=== PATIENT | female | born 1940 | race Caucasian/White ===

== ENCOUNTER → 2016-07-30 | Outpatient (CLI) | payer MEDICARE | LOC: KOH-I 13:30 | DX: M54.16 Radiculopathy, lumbar region (principal); R10.9 Unspecified abdominal pain; N20.0 Calculus of kidney; M51.16 Intervertebral disc disorders with radiculopathy, lumbar region; Z98.890 Other specified postprocedural states | CPT/HCPCS: 72148; 74176 ==

== ENCOUNTER 2020-08-15 00:55 | Inpatient (IN) | payer MEDICARE ==
[~2020-08-15] VITALS: Ht 157.5 cm; Wt 85.3 kg
[2020-08-15 01:28] LABS: HEMOGLOBIN 10.5 gm/dl (12.3-15.3); RED BLOOD COUNT 3.47 M/UL (4.00-5.10); WHITE BLOOD COUNT 9.4 K/UL (4.5-11.0)
[2020-08-15] MEDS ORDERED: HYDROCHLOROTHIA25 MG PO (05:36)
[2020-08-15] MEDS ORDERED: COREG 12.5MG12.5 MG PO (05:36)
[2020-08-15] MEDS ORDERED: LASIX20 MG PO (05:37)
[2020-08-15] MEDS ORDERED: LEVOTHYROXINE100 MC2 PO (05:37)
[2020-08-15] MEDS ORDERED: PROTONIX40 MG PO (05:37)
[2020-08-15] MEDS ORDERED: EFFEXOR XR75 MG PO (05:38)
[2020-08-15] MEDS ORDERED: FEOSOL325 MG PO (05:38)
[2020-08-15] MEDS ORDERED: ALTACE CAP 5MG5 MG PO (05:38)
[2020-08-15] MEDS ORDERED: VITAMIN C500 M4 PO (05:39)
[2020-08-15] MEDS ORDERED: MACRODANTIN100 MG PO (05:40)
[2020-08-15] MEDS ORDERED: TRAZODONE HCL100 MG PO (05:41)
[2020-08-15] MEDS ORDERED: ZYRTEC10 MG PO (05:41)
[2020-08-15] MEDS ORDERED: HYDRALAZINE HCL25 MG PO (05:54)
[2020-08-15] MEDS ORDERED: SINEQUAN CAP 2525 MG PO (05:54)
[2020-08-15] MEDS ORDERED: PREDNISONE 5 MG5 MG PO (05:57)
[2020-08-15] MEDS ORDERED: WARFARIN SODIUM6 MG PO (06:00)
[2020-08-16 06:22] LABS: HEMOGLOBIN 9.6 gm/dl (12.3-15.3); RED BLOOD COUNT 3.26 M/UL (4.00-5.10)
[2020-08-16 06:29] LABS: WHITE BLOOD COUNT 6.3 K/UL (4.5-11.0)
[2020-08-17] MEDS ORDERED: BACTRIM DS TAB1 EACH PO (10:21)
[2020-08-17] MEDS ORDERED: PREDNISONE10 MG PO (13:09)
== END 2020-08-17 14:43 | disposition home or self-care (01) | DRG 189 ==
LOC: ER1 00:55 → MED SURG 4 02:00 → CDU 02:00 → MED SURG 4 05:15
PROVIDERS: Internal Medicine; ADMIT Internal Medicine
PROC: B24BZZ4 Ultrasonography of Heart with Aorta, Transesophageal (ICD-10-PCS; principal; 2020-08-15)
DX: J96.21 Acute and chronic respiratory failure with hypoxia (principal); E66.2 Morbid (severe) obesity with alveolar hypoventilation; Z68.41 Body mass index [BMI] 40.0-44.9, adult; F11.20 Opioid dependence, uncomplicated; I50.42 Chronic combined systolic (congestive) and diastolic (congestive) heart failure; N39.0 Urinary tract infection, site not specified; Z66 Do not resuscitate; I25.10 Atherosclerotic heart disease of native coronary artery without angina pectoris; G89.29 Other chronic pain; Z20.822 Contact with and (suspected) exposure to COVID-19; I11.0 Hypertensive heart disease with heart failure; I25.5 Ischemic cardiomyopathy; I08.1 Rheumatic disorders of both mitral and tricuspid valves; M47.896 Other spondylosis, lumbar region; E03.9 Hypothyroidism, unspecified; J96.22 Acute and chronic respiratory failure with hypercapnia; F41.9 Anxiety disorder, unspecified; K21.9 Gastro-esophageal reflux disease without esophagitis; J20.9 Acute bronchitis, unspecified; G83.89 Other specified paralytic syndromes; Z88.6 Allergy status to analgesic agent; Z86.711 Personal history of pulmonary embolism; Z79.01 Long term (current) use of anticoagulants; Z87.440 Personal history of urinary (tract) infections; Z88.8 Allergy status to other drugs, medicaments and biological substances; Z91.041 Radiographic dye allergy status; Z91.012 Allergy to eggs; Z91.013 Allergy to seafood
CPT/HCPCS: ECHO; 36415; 36600; 71045; 80048; 80053; 81001; 82550; 82553; 82803; 82962; 83036; 83880; 84484; 85025; 85610; 85730; 87077; 87086; 87186; 93005; 93306; 94640; 94660; 94760; 97110-GP-CQ; 97162; 97530-GP-CQ; 99285; J1335; J1940; J2920; U0002

== ENCOUNTER 2021-07-27 11:19 | Observation (INO) | payer MEDICARE ==
[~2021-07-27] VITALS: Ht 157.5 cm; Wt 78.0 kg
[~2021-07-27 11:19] MED LIST: ALTACE CAP 5MG5 MG PO; BACTRIM DS TAB1 EACH PO; COREG 12.5MG12.5 MG PO; EFFEXOR XR75 MG PO; FEOSOL325 MG PO; HYDRALAZINE HCL25 MG PO; HYDROCHLOROTHIA25 MG PO; LASIX20 MG PO; LEVOTHYROXINE100 MC2 PO; MACRODANTIN100 MG PO; PREDNISONE 5 MG5 MG PO; PREDNISONE10 MG PO; PROTONIX40 MG PO; SINEQUAN CAP 2525 MG PO; TRAZODONE HCL100 MG PO; VITAMIN C500 M4 PO; WARFARIN SODIUM6 MG PO; ZYRTEC10 MG PO
[2021-07-27 13:22] LABS: HEMOGLOBIN 11.3 gm/dl (12.3-15.3); RED BLOOD COUNT 3.77 M/UL (4.00-5.10); WHITE BLOOD COUNT 9.5 K/UL (4.5-11.0)
[2021-07-27 13:45] LABS: BUN/CREATININE RATIO 18 (0-10)
[2021-07-27] MEDS ORDERED: GLUCOTROL5 MG PO (16:24)
[2021-07-27] MEDS ORDERED: REMERON15 MG PO (16:26)
[2021-07-27] MEDS ORDERED: NITROFURANTOIN100 MG PO (16:29)
[2021-07-27] MEDS ORDERED: JARDIANCE25 MG PO (16:33)
[2021-07-27] MEDS ORDERED: PROAIR HFA8.5 GM INH (16:44)
[2021-07-28 03:40] LABS: HEMOGLOBIN 9.9 gm/dl (12.3-15.3)
[2021-07-28 03:41] LABS: RED BLOOD COUNT 3.32 M/UL (4.00-5.10); WHITE BLOOD COUNT 12.2 K/UL (4.5-11.0)
[2021-07-29 07:42] LABS: RED BLOOD COUNT 3.29 M/UL (4.00-5.10); WHITE BLOOD COUNT 10.4 K/UL (4.5-11.0)
[2021-07-29] MEDS ORDERED: WARFARIN SODIUM6 MG PO (09:39)
[2021-07-29] MEDS ORDERED: CEFDINIR300 MG PO ×2 (09:39→10:55)
[2021-07-29] MEDS ORDERED: LASIX20 MG PO (09:47)
== END 2021-07-29 11:30 | disposition home or self-care (01) ==
LOC: ER1 11:19 → CDU 16:09 → M/S 16:11
PROVIDERS: Emergency Medicine; Physician Assistant Medical; ADMIT Internal Medicine
DX: N30.00 Acute cystitis without hematuria (principal); Z20.822 Contact with and (suspected) exposure to COVID-19; G93.40 Encephalopathy, unspecified; E11.9 Type 2 diabetes mellitus without complications; I11.0 Hypertensive heart disease with heart failure; I50.9 Heart failure, unspecified; I70.0 Atherosclerosis of aorta; I35.0 Nonrheumatic aortic (valve) stenosis; J96.10 Chronic respiratory failure, unspecified whether with hypoxia or hypercapnia; K21.9 Gastro-esophageal reflux disease without esophagitis; E03.9 Hypothyroidism, unspecified; J44.9 Chronic obstructive pulmonary disease, unspecified; Z79.01 Long term (current) use of anticoagulants; Z79.52 Long term (current) use of systemic steroids; Z79.84 Long term (current) use of oral hypoglycemic drugs; Z79.891 Long term (current) use of opiate analgesic; Z79.899 Other long term (current) drug therapy; Z86.711 Personal history of pulmonary embolism; Z88.1 Allergy status to other antibiotic agents; Z88.6 Allergy status to analgesic agent; Z91.012 Allergy to eggs; Z91.013 Allergy to seafood; Z91.041 Radiographic dye allergy status; Z99.81 Dependence on supplemental oxygen
CPT/HCPCS: 36415; 36600; 71045; 80048; 80053; 81001; 82550; 82553; 82803; 82962; 83735; 84484; 85025; 85027; 85610; 87040; 87086; 93005; 94640; 94664; 94760; 96372; 96374; 96375; 99285; G0378; J0696; J1650; J2185; J7040; U0002